=== PATIENT | female | born 1945 | race Caucasian/White ===

== ENCOUNTER → 2019-12-29 11:09 | Outpatient (BNVA) | payer MEDICARE, OTHER, SELFPAY | PROVIDERS: Family Provider Nurse Practitioner; PCP Nurse Practitioner; Visit Provider Nurse Practitioner | DX: L40.0 Psoriasis vulgaris (principal); I10 Essential (primary) hypertension; E55.9 Vitamin D deficiency, unspecified; E78.5 Hyperlipidemia, unspecified | CPT/HCPCS: 80053; 80061; 82306; 85025 ==

== ENCOUNTER → 2020-02-25 15:27 | Outpatient (BNVA) | payer MEDICARE, OTHER, SELFPAY | PROVIDERS: Family Provider Nurse Practitioner; PCP Nurse Practitioner; Visit Provider Dermatology | DX: R21 Rash and other nonspecific skin eruption (principal); L82.1 Other seborrheic keratosis; F17.210 Nicotine dependence, cigarettes, uncomplicated | CPT/HCPCS: 11104; 99203 ==

== ENCOUNTER → 2020-02-26 09:49 | Outpatient (BNVA) | payer MEDICARE, OTHER, SELFPAY | PROVIDERS: Family Provider Nurse Practitioner; PCP Nurse Practitioner; Visit Provider Dermatology | DX: L82.1 Other seborrheic keratosis (principal); R21 Rash and other nonspecific skin eruption | CPT/HCPCS: 88305 ==

== ENCOUNTER → 2020-03-09 10:50 | Outpatient (BNVA) | payer MEDICARE, OTHER, SELFPAY | PROVIDERS: Family Provider Nurse Practitioner; PCP Nurse Practitioner; Visit Provider Nurse Practitioner | DX: R19.7 Diarrhea, unspecified (principal) | CPT/HCPCS: 80053; 85025 ==

== ENCOUNTER → 2020-03-10 11:11 | Outpatient (BNVA) | payer MEDICARE, OTHER, SELFPAY | PROVIDERS: Family Provider Nurse Practitioner; PCP Nurse Practitioner; Visit Provider Nurse Practitioner | DX: R19.7 Diarrhea, unspecified (principal) | CPT/HCPCS: 81000; 87177; 87209; 87506 ==

== ENCOUNTER → 2020-03-14 10:01 | Outpatient (BNVA) | payer MEDICARE, OTHER, SELFPAY | PROVIDERS: Family Provider Nurse Practitioner; PCP Nurse Practitioner; Visit Provider Nurse Practitioner | DX: E87.1 Hypo-osmolality and hyponatremia (principal) | CPT/HCPCS: 80048 ==

== ENCOUNTER → 2020-03-24 15:08 | Outpatient (BNVA) | payer MEDICARE, OTHER, SELFPAY | PROVIDERS: Family Provider Nurse Practitioner; PCP Nurse Practitioner; Visit Provider Dermatology | DX: L43.2 Lichenoid drug reaction (principal); F17.210 Nicotine dependence, cigarettes, uncomplicated | CPT/HCPCS: 99213 ==

== ENCOUNTER → 2020-04-21 15:05 | Outpatient (BNVA) | payer MEDICARE, OTHER, SELFPAY | PROVIDERS: Family Provider Nurse Practitioner; PCP Nurse Practitioner; Visit Provider Dermatology | DX: L43.2 Lichenoid drug reaction (principal) | CPT/HCPCS: 99212; 99213 ==

== ENCOUNTER → 2020-06-02 10:45 | Outpatient (BNVA) | payer MEDICARE, OTHER, SELFPAY | PROVIDERS: Family Provider Nurse Practitioner; PCP Nurse Practitioner; Visit Provider Nurse Practitioner | DX: I10 Essential (primary) hypertension (principal); R63.4 Abnormal weight loss | CPT/HCPCS: 80053; 81003; 84443; 85025 ==

== ENCOUNTER 2020-06-10 07:45 | Outpatient (CLI) | payer MEDICARE, OTHER, SELFPAY ==
[2020-06-10] MEDS: iohexol 300 mg/mL 50 mL Btl PO (09:17)
[2020-06-10] MEDS: iohexol 300 mg/mL 100 mL Btl IV (09:23)
--- NOTE | 2020-06-10 09:30 | CT_ITS ---
WS: [id number] CT CHEST, ABDOMEN, AND PELVIS TECHNIQUE: Contrast-enhanced CT of the chest, abdomen, and pelvis with coronal and sagittal reformatt ed images. CLINICAL INFORMATION: weight loss abnormal r/o COMPARISON: CT abdomen [address] abdomen pelvis 2 ,014 DLP: 1079.[address] scans at [facility] use at least one of these dose optimization techniques: automat ed exposure control; mA and/or kV adjustment per patient size (includes targeted exams where dose is matched to clinical indication); or iterative reconstruction. CT CHEST: Mild chronic emphysematous changes. Fibrosis in the lung apices. Slightly spiculated small nodule in the right upper lobe laterally measuring 5 mm. Small subpleural nodule right middle lobe measuring 4 mm. Slight subsegmental atelectasis left lower lobe. Noncalcified nodule superior segment left lower lobe measuring 3.5 mm. Additional noncalcified nodule left upper lobe measuring 4 mm. Normal caliber thoracic aorta. Moderate aortic calcification. Proximal main pulmonary arteries are normal. No medias tinal or hilar lymphadenopathy. Thyroid gland is normal. No axillary lymphadenopathy. Normal visualiz ed thoracic spine. CT ABDOMEN AND PELVIS: Mild diffuse fatty infiltration of the liver. Normal gallbladder. Small splenule. Normal pancreas. Ad renal glands are normal. Normal renal parenchymal enhancement. No hydronephrosis. Tiny left renal cys t. Normal caliber abdominal aorta. Aortic calcification. No evidence of small or large bowel obstruction. No free fluid in the pelvis. Prior hysterectomy CT/CT chest abd pel w con* IMPRESSION: 1. Several noncalcified nodules described above the largest in the right upper lobe measuring 5 mm. Recommend 6 month follow-up. 2. 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 3. No adenopathy in the chest abdomen or pelvis. 4. No free fluid in the abdomen or pelvis. 5. No hydronephrosis in either kidney. Tiny left renal cysts. 6. Prior hysterectomy 7. Disc space narrowing worse L5-S1.
== END 2020-06-10 07:46 | disposition home or self-care (01) ==
PROVIDERS: PCP Nurse Practitioner; Visit Provider Nurse Practitioner
DX: R63.4 Abnormal weight loss (principal); R91.8 Other nonspecific abnormal finding of lung field; J84.10 Pulmonary fibrosis, unspecified; Z90.710 Acquired absence of both cervix and uterus
CPT/HCPCS: 71260; 74177

== ENCOUNTER → 2020-06-14 11:01 | Outpatient (BNVA) | payer MEDICARE, OTHER, SELFPAY | PROVIDERS: Family Provider Nurse Practitioner; PCP Nurse Practitioner; Visit Provider Nurse Practitioner | DX: R63.4 Abnormal weight loss (principal); R91.1 Solitary pulmonary nodule; I10 Essential (primary) hypertension; D64.9 Anemia, unspecified | CPT/HCPCS: 82607; 83550 ==

== ENCOUNTER → 2020-07-26 12:05 | Outpatient (BNVA) | payer MEDICARE, OTHER, SELFPAY | PROVIDERS: Family Provider Nurse Practitioner; PCP Nurse Practitioner; Visit Provider Nurse Practitioner | DX: J44.9 Chronic obstructive pulmonary disease, unspecified (principal); L43.2 Lichenoid drug reaction; E87.1 Hypo-osmolality and hyponatremia; I10 Essential (primary) hypertension | CPT/HCPCS: 80053; 85025 ==

== ENCOUNTER → 2020-08-24 10:07 | Outpatient (BNVA) | payer MEDICARE, OTHER, SELFPAY | PROVIDERS: Family Provider Nurse Practitioner; PCP Nurse Practitioner; Visit Provider Nurse Practitioner | DX: I50.9 Heart failure, unspecified (principal); J44.9 Chronic obstructive pulmonary disease, unspecified | CPT/HCPCS: 80053 ==

== ENCOUNTER 2020-12-27 09:59 | Outpatient (CLI) | payer MEDICARE, OTHER, SELFPAY ==
--- NOTE | 2020-12-27 10:30 | CT_ITS ---
WS: [id number] CT CHEST WITHOUT INTRAVENOUS CONTRAST HISTORY: lung nodule TECHNIQUE: Contiguous 5 mm axial imaging performed on the thorax. Coronal and sagittal reformats are submitted. All CT scans at [facility] use at least one of these dose optimization techniq ues: automated exposure control; mA and/or kV adjustment per patient size (includes targeted exams wh ere dose is matched to clinical indication); or iterative reconstruction. CONTRAST: None DLP: 346.35 mGy.cm COMPARISON: 06/10/2020 Lungs and central airway: Chronic emphysematous changes. Moderate biapical pleural thickening and fib rosis is stable. Slightly spiculated 5 mm nodule in the RIGHT upper lobe is unchanged. Subpleural nod ule in the RIGHT middle lobe is stable at 5 mm. Mild pleural thickening on the LEFT. No new or enlarg ing nodules. Pleura: Normal. No pleural effusion. Heart and pericardium: Normal size heart with no pericardial effusion. Mediastinum and polly: No mediastinum or hilar adenopathy. Vessels: Severe atherosclerosis aorta. Heavy calcification with no aneurysm. Pulmonary artery size is normal. Chest wall and lower neck: No soft tissue masses. Upper abdomen: Atherosclerosis continues into the suprarenal aorta. Unenhanced imaging of the distal organs is negative for any acute process. No adrenal mass. Osseous structures: Osteopenia with degenerative disc disease and osteophytic findings. CT/CT chest wo con [id number] IMPRESSION: 1. Chronic emphysematous changes and bilateral apical fibrosis. 2. RIGHT upper lobe and RIGHT middle lobe 5 mm pulmonary nodules are stable. N o new or increasing nodularity. Recommend [address] follow-up.
== END 2020-12-27 10:00 | disposition home or self-care (01) ==
PROVIDERS: PCP Nurse Practitioner; Visit Provider Nurse Practitioner
DX: R91.1 Solitary pulmonary nodule (principal)
CPT/HCPCS: 71250

== ENCOUNTER → 2021-02-06 10:11 | Outpatient (BNVA) | payer MEDICARE, OTHER, SELFPAY | PROVIDERS: PCP Nurse Practitioner; Visit Provider Nurse Practitioner | DX: I11.0 Hypertensive heart disease with heart failure (principal); E55.9 Vitamin D deficiency, unspecified; I50.9 Heart failure, unspecified | CPT/HCPCS: 80053; 80061; 81000; 82306; 82607; 84443; 85025 ==

== ENCOUNTER → 2021-08-22 11:20 | Outpatient (BNVA) | payer MEDICARE, OTHER, SELFPAY | PROVIDERS: PCP Nurse Practitioner; Visit Provider Nurse Practitioner | DX: E53.8 Deficiency of other specified B group vitamins (principal); I10 Essential (primary) hypertension; I50.9 Heart failure, unspecified; Z20.822 Contact with and (suspected) exposure to COVID-19; E55.9 Vitamin D deficiency, unspecified | CPT/HCPCS: 80053; 82306; 82607; 83880; 84443; 85025; 87635 ==

== ENCOUNTER → 2021-09-05 09:46 | Outpatient (BNVA) | payer MEDICARE, OTHER, SELFPAY | PROVIDERS: PCP Nurse Practitioner; Visit Provider Nurse Practitioner | DX: E87.1 Hypo-osmolality and hyponatremia (principal) | CPT/HCPCS: 80048 ==

== ENCOUNTER → 2022-02-05 11:45 | Outpatient (BNVA) | payer MEDICARE, OTHER, SELFPAY | PROVIDERS: PCP Nurse Practitioner; Visit Provider Nurse Practitioner | DX: I10 Essential (primary) hypertension (principal); I50.9 Heart failure, unspecified; F17.210 Nicotine dependence, cigarettes, uncomplicated; E55.9 Vitamin D deficiency, unspecified | CPT/HCPCS: 80053; 80061; 84443; 85025 ==

== ENCOUNTER → 2022-02-06 09:20 | Outpatient (BNVA) | payer MEDICARE, OTHER, SELFPAY | PROVIDERS: PCP Nurse Practitioner; Visit Provider Nurse Practitioner | DX: R19.5 Other fecal abnormalities (principal) | CPT/HCPCS: 83630; 87506 ==

== ENCOUNTER → 2022-10-15 09:43 | Outpatient (BNVA) | payer MEDICARE, OTHER, SELFPAY | PROVIDERS: PCP Nurse Practitioner; Visit Provider Nurse Practitioner | DX: I50.9 Heart failure, unspecified (principal); I10 Essential (primary) hypertension; L40.0 Psoriasis vulgaris | CPT/HCPCS: 80053; 80061; 85025 ==

== ENCOUNTER → 2023-05-23 15:22 | Outpatient (BNVA) | payer MEDICARE, OTHER, SELFPAY | PROVIDERS: PCP Nurse Practitioner; Visit Provider Nurse Practitioner | DX: J44.9 Chronic obstructive pulmonary disease, unspecified (principal); I10 Essential (primary) hypertension; L29.9 Pruritus, unspecified; E87.1 Hypo-osmolality and hyponatremia | CPT/HCPCS: 80053; 80061; 84443; 85025 ==

== ENCOUNTER → 2023-11-04 15:07 | Outpatient (BNVA) | payer MEDICARE, OTHER, SELFPAY | PROVIDERS: PCP Nurse Practitioner; Visit Provider Nurse Practitioner | DX: I10 Essential (primary) hypertension (principal); R91.1 Solitary pulmonary nodule; I50.9 Heart failure, unspecified; M50.30 Other cervical disc degeneration, unspecified cervical region; E78.5 Hyperlipidemia, unspecified; G47.00 Insomnia, unspecified; N39.0 Urinary tract infection, site not specified; Z79.899 Other long term (current) drug therapy | CPT/HCPCS: 80053; 80061; 81000; 84443; 85025; 87077; 87086; 87184 ==

== ENCOUNTER → 2023-11-18 12:13 | Outpatient (BNVA) | payer MEDICARE, OTHER, SELFPAY | PROVIDERS: PCP Nurse Practitioner; Visit Provider Nurse Practitioner | DX: E87.1 Hypo-osmolality and hyponatremia (principal); J44.9 Chronic obstructive pulmonary disease, unspecified; I10 Essential (primary) hypertension; M50.30 Other cervical disc degeneration, unspecified cervical region | CPT/HCPCS: 80053; 85025 ==

== ENCOUNTER → 2023-11-19 11:37 | Outpatient (BNVA) | payer MEDICARE, OTHER, SELFPAY | PROVIDERS: PCP Nurse Practitioner; Visit Provider Nurse Practitioner | DX: I10 Essential (primary) hypertension (principal) | CPT/HCPCS: 81000 ==

== ENCOUNTER → 2023-12-02 11:17 | Outpatient (BNVA) | payer MEDICARE, OTHER, SELFPAY | PROVIDERS: PCP Nurse Practitioner; Visit Provider Nurse Practitioner | DX: I10 Essential (primary) hypertension (principal) | CPT/HCPCS: 80048; 82607; 83550; 85025 ==

== ENCOUNTER → 2024-01-31 09:30 | Outpatient (BNVA) | payer MEDICARE, OTHER, SELFPAY | PROVIDERS: PCP Nurse Practitioner; Visit Provider Nurse Practitioner | DX: R19.7 Diarrhea, unspecified (principal) | CPT/HCPCS: 87045; 87427; 87449 ==

== ENCOUNTER → 2024-02-06 09:00 | Outpatient (BNVA) | payer MEDICARE, OTHER, SELFPAY | PROVIDERS: PCP Nurse Practitioner; Visit Provider Nurse Practitioner | DX: E53.8 Deficiency of other specified B group vitamins (principal); I10 Essential (primary) hypertension; E61.1 Iron deficiency | CPT/HCPCS: 80053; 83550; 85025 ==

== ENCOUNTER 2024-03-03 10:39 | Emergency (ER) | payer MEDICARE, OTHER, SELFPAY ==
[2024-03-03 10:41] VITALS: BP 138/63; PULSE 78; RESP 18; TEMP 36.8; O2SAT 98
--- NOTE | 2024-03-03 10:57 | XRR_ITS ---
PROCEDURE INFORMATION: Exam: XR Abdomen Exam date and time: 03/03/2024 11:25 AM Age: 78 years old Clinical indication: Constipation TECHNIQUE: Imaging protocol: Radiologic exam of the abdomen. Views: Frontal supine view of the abdomen. 1 View. COMPARISON: CT chest abdpel w/*[id number] 06/10/2020 9:15 AM FINDINGS: Gastrointestinal tract: No dilated loops of large or small bowel is appreciated. There is a moderate amount of stool within the colon and rectum. No pathologic calcifications are noted. Bones/joints: Unremarkable. XR/XR KUB [id number] IMPRESSION: 1. Fecal stasis.
--- NOTE | 2024-03-03 11:32 | ED_ITS ---
HPI - Abdominal Pain 2 General: Chief Complaint: Abdominal Pain Stated Complaint: constipation, abd pain Time Seen by Provider: 03/03/24 11:12 Source: patient Mode of arrival: ambulatory Limitations: no limitations History of Present Illness: 78-year-old female states that she has h ad constipation for the last week. States she is feeling pressure in her rectum is try to disimpact herself states she has not feels like she is not able to get a full bowel movement out. She denies any abdominal pain she had no vomiting no diarrhea she has tried laxatives at home with no success. Associated Symptoms: Reports constipation; Denies chills, diarrhea, fever(s), nausea and vomiting Review of Systems 2 Const: Denies: fever(s), chills, body aches or change in appetite ENMT: Denies: throat pain or dental pain Card: Denies: chest pain Resp: Denies: dyspnea GI: Reports: constipation; Denies: abdominal pain, nausea, vomiting or diarrhea Musc: Denies: neck pain or back pain Skin/Breast: Denies: rash Neuro: Denies: headache(s) PFSH ED 2 PFSH: Medical History Vitamin B12 deficiency COPD (chronic obstructive pulmonary disease) Cigarette smoker Lichenoid drug reaction Hyponatremia Dyslipidemia Psoriasis vulgaris DDD (degenerative disc disease), cervical Vitamin D deficiency HTN, goal below 140/80 Surgical History History of appendectomy History of hysterectomy with BSO Family History Other Heart disease Hypertension Denies family history of Bleeding disorder Cancer Social History Smoking and tobacco/nicotine status: current every day tobacco/nicotine user cigarettes Packs smoked per day: 0.5 Second hand smoke exposure: Yes Alcohol intake: current Alcohol intake frequency: few times a week Substance/Drug Use: unknown Adopted: No Caregiver/support person: No Lives independently: Yes Household members: spouse Housing: House Marital status: service: No Current occupational status: retired Do you think of yourself as: Straight/Heterosexual Current gender identity: Female Physical Exam 2 Const: COMMON NORMALS: no acute distress, patient oriented x3 and healthy appearing HENMT: COMMON NORMALS: normocephalic and atraumatic HEAD & SCALP: n ormocephalic and atraumatic Neck/C-Spine: COMMON NORMALS: full ROM and supple Chest: COMMONS NORMALS: normal inspection of the chest Resp: COMMON NORMALS: normal respiratory effort Cardio: COMMON NORMALS: regular rate, regular rhythm and No murmurs present (Cardio) RATE: regular rate RHYTHM: regular rhythm GI: COMMON NORMALS: Normal to inspection, nondistended, normoactive bowel sounds present, Soft to palpation, non-tender and no masses PALPATION: Yes Soft to palpation Extremity: COMMON NORMALS: normal to inspection and full ROM Neuro: COMMON NORMALS: patient oriented x3, moves all extremities and no focal motor deficits Psych: COMMON NORMALS: mental status grossly normal, Normal thought process present and cooperative THOUGHT PROCESS: Normal thought process present Skin: COMMON NORMALS: no rashes or lesions noted and no wounds GENERAL SKIN EXAM: no rashes or lesions noted Course 2 Vital Signs: Vital signs: Vital Signs Temperature 98.2 F 03/03/24 10:41 Pulse Rate 74 03/03/24 12:30 Respiratory Rate 15 03/03/24 12:30 Blood Pressure 140/68 03/03/24 12:30 Pulse Oximetry 98 03/03/24 12:30 Oxygen Delivery Me thod Room Air 03/03/24 12:30 MDM - Abdominal Pain Medical Decision Making Patient presents here with constipation she had a large bowel movement here and feels much improved she has no signs of obstruction she stable for discharge follow-up with PCP return if worsening Medical Records I reviewed the patient's medical records. Lab Data I reviewed the patient's lab results. 03/03/24 11:16 03/03/24 11:16 Labs/Radiology: Radiology Impressions KUB X-Ray 03/03/24 10:57 IMPRESSION: 1. Fecal stasis. Laboratory Results WBC 9.38 10^3/uL (3.29-11.43) 03/03/24 11:16 RBC 3.79 10^6/uL (3.85-5.65) L 03/03/24 11:16 Hgb 11.40 g/dL (11.27-16.99) 03/03/24 11:16 Hct 35.0 % (36-47) L 03/03/24 11:16 MCV 92.3 fl (85-98) 03/03/24 11:16 MCH 30.1 pg (27-33) 03/03/24 11:16 MCHC 32.6 g/dL (30-55) 03/03/24 11:16 RDW 13.2 % (12.1-15.1) 03/03/24 11:16 Plt Count 340 10^3/cmm (157-399) 03/03/24 11:16 MPV 8.8 fL (7.4-10.4) 03/03/24 11:16 Neut % (Auto) 79.2 % 03/03/24 11:16 Lymph % (Auto) 11.4 % 03/03/24 11:16 [place] % (Auto) 7.7 % 03/03/24 11:16 Eos % (Auto) 1.1 % 03/03/24 11:16 Baso % (Auto) 0.3 % 03/03/24 11:16 Neut # (Auto) 7.43 10^3/uL (1.8-7.7) 03/03/24 11:16 Lymph # (Auto) 1.1 10^3/uL (0.8-4.8) 03/03/24 11:16 [place] # (Auto) 0.7 10^3/uL (0.2-0.9) 03/03/24 11:16 Eos # (Auto) 0.1 10^3/uL (0.0-0.8) 03/03/24 11:16 Baso # (Auto) 0.0 10^3/uL (0.0-0.1) 03/03/24 11:16 Nucleated RBC % (auto) 0 % 03/03/24 11:16 Nucleated RBCs # 0.0 /100WBC 03/03/24 11:16 Sodium 130 mmol/L (136-145) L 03/03/24 11:16 Potassium 3.4 mmol/L (3.5-5.1) L 03/03/24 11:16 Chloride 93 mmol/L (98-107) L 03/03/24 11:16 Carbon Dioxide 27 mmol/L (22-29) 03/03/24 11:16 Anion Gap 13.4 (5-19) 03/03/24 11:16 BUN 14 mg/dL (8-23) 03/03/24 11:16 Creatinine 0.9 mg/dL (0.5-0.9) 03/03/24 11:16 GFR Calculation Not Reportable 03/03/24 11:16 Glucose 99 mg/dL (65-115) 03/03/24 11:16 Calculated Osmolality 271 mOsm/kg (285-295) L 03/03/24 11:16 Calcium 8.8 mg/dL (8.5-10.5) 03/03/24 11:16 Total Bilirubin 0.4 mg/dL (0.15-1.2) 03/03/24 11:16 AST 29 U/L (0-32) 03/03/24 11:16 ALT 19 U/L (0-33) 03/03/24 11:16 Alkaline Phosphatase 112 U/L (35-105) H 03/03/24 11:16 Total Protein 9.2 g/dL (6.6-8.7) H 03/03/24 11:16 Albumin 4.0 g/dL (3.5-5.2) 03/03/24 11:16 Globulin 5.2 g/dL (1.3-4.6) H 03/03/24 11:16 Lipase 39 U/L (13-60) 03/03/24 11:16 All radiology interpretation(s) finalized by discharge Discharge Plan Discharge Patient Disposition: Home Clinical Impression: Constipation Condition: Stable Prescriptions: No Action (DME) nebulizers Misc See Rx Instructions .ROUTE .MEDSUPPLY Qty: 1 0RF Rx Instructions: As directed aspirin [Adult Aspirin Regimen] 81 mg tablet,delayed release (DR/EC) 81 mg PO DAILY metoprolol succinate [Toprol XL] 25 mg tablet extended release 24 hr 25 mg PO DAILY Qty: 90 1RF Hold Instructions: Improved blood pressure...use if heart rate>120 sodium chloride 1,000 mg tablet,soluble 1,000 mg PO BID Qty: 180 1RF Hold Instructions: Improved lab ferrous sulfate [FeroSul] 325 mg (65 mg iron) tablet 325 mg PO DAILY amlodipine [Norvasc] 5 mg tablet 5 mg PO DAILY Qty: 90 1RF furosemide [Lasix] 20 mg tablet 20 mg PO DAILY PRN (Reason: edema) Qty: 90 1RF valsartan 160 mg tablet 160 mg PO DAILY Qty: 90 1RF famciclovir 500 mg tablet 500 mg PO BID Qty: 28 0RF lidocaine 4 % cream 1 applic topical TID PRN (Reason: pain) Qty: 28 0RF Rx Instructions: large area trunk triamcinolone acetonide 0.1 % ointment 1 applic topical DAILY PRN (Reason: itching) Qty: 453.6 0RF famotidine [Pepcid] 20 mg tablet 20 mg PO DAILY budesonide [Pulmicort] 0.5 mg/2 mL suspension for nebulization 0.5 mg inhalation BID Qty: 120 5RF albuterol sulfate 2.5 mg /3 mL (0.083 %) solution for nebulization 2.5 mg inhalation Q4H PRN (Reason: shortness of breath or wheezing) Qty: 180 2RF Rx Instructions: cough or wheeze ketoconazole 2 % shampoo 1 applic topical .two-three week Qty: 120 2RF Discharge Orders: Discharge ED (Routine); Ordered 03/03/24 Ordered By: Cezar Spangler Referrals: Uriel Ball, HEAD B[facility]ER-C [Primary Care Provider] - 4-7 days Discharge Diet: Advance as tolerated Discharge Activity: Resume usual activity Patient Instructions: Constipation (ED) Coding Level of Care Code ED [employer] for Lida Brar
[2024-03-03 11:38] LABS: Basophils % 0.3 %; Eosinophils # 0.1 10^3/uL (0.0-0.8); Eosinophils % 1.1 %; Lymphocytes # 1.1 10^3/uL (0.8-4.8); Lymphocytes % 11.4 %; Mean Corpuscular HGB Conc 32.6 g/dL (30-55); Mean Corpuscular Hemoglobin 30.1 pg (27-33); Mean Corpuscular Volume 92.3 fl (85-98); Mean Platelet Volume 8.8 fL (7.4-10.4); Monocytes # 0.7 10^3/uL (0.2-0.9); Monocytes % 7.7 %; Neutrophils # 7.43 10^3/uL (1.8-7.7); Neutrophils % 79.2 %; Nucleated Red Blood Cells % 0 %; Platelet Count 340 10^3/cmm (157-399); Red Blood Count 3.79 10^6/uL (3.85-5.65); Red Cell Distribution Width 13.2 % (12.1-15.1); White Blood Count 9.38 10^3/uL (3.29-11.43)
[2024-03-03 11:57] LABS: Alanine Aminotransferase 19 U/L (0-33); Alkaline Phosphatase 112 U/L (35-105); Anion Gap 13.4 (5-19); Aspartate Amino Transferase 29 U/L (0-32); Blood Urea Nitrogen 14 mg/dL (8-23); Calcium 8.8 mg/dL (8.5-10.5); Carbon Dioxide 27 mmol/L (22-29); Chloride 93 mmol/L (98-107); Creatinine Clr Calc Pharmacy 47.5983; Globulin 5.2 g/dL (1.3-4.6); Glucose 99 mg/dL (65-115); Lipase 39 U/L (13-60); Osmolality Calculated 271 mOsm/kg (285-295); Potassium 3.4 mmol/L (3.5-5.1); Sodium 130 mmol/L (136-145); Total Bilirubin 0.4 mg/dL (0.15-1.2); Total Protein 9.2 g/dL (6.6-8.7)
[2024-03-03] MEDS: lactulose oral liq 20 gm/30 mL UDC 30 GM PO (12:15)
[2024-03-03] MEDS: Fleet Enema 133 mL Enema PR (12:17)
[2024-03-03 12:30] VITALS: BP 140/68; PULSE 74; RESP 15; O2SAT 98
--- NOTE | 2024-03-03 12:51 | PC.NURSE ---
pt has had a large hard bm in room. pt currently in bathroom r/t pt stating she feels the urge to go more.
[2024-03-03 13:15] VITALS: BP 99/62; PULSE 91; RESP 16; O2SAT 91
== END 2024-03-03 13:17 | disposition home or self-care (01) ==
PROVIDERS: Physician Assistant; Emergency Provider Emergency Medicine; PCP Nurse Practitioner
DX: K59.00 Constipation, unspecified (principal); Z79.82 Long term (current) use of aspirin; J44.9 Chronic obstructive pulmonary disease, unspecified; E78.5 Hyperlipidemia, unspecified; I10 Essential (primary) hypertension; F17.210 Nicotine dependence, cigarettes, uncomplicated
CPT/HCPCS: 36415; 74018; 80053; 83690; 85025; 99284

== ENCOUNTER → 2024-04-09 09:54 | Outpatient (BNVA) | payer MEDICARE, OTHER, SELFPAY | PROVIDERS: PCP Nurse Practitioner; Visit Provider Nurse Practitioner | DX: I10 Essential (primary) hypertension (principal); E53.8 Deficiency of other specified B group vitamins; E61.1 Iron deficiency | CPT/HCPCS: 80053; 82607; 83540; 85025 ==

== ENCOUNTER → 2024-04-15 15:30 | Outpatient (BNVA) | payer MEDICARE, OTHER, SELFPAY | PROVIDERS: PCP Nurse Practitioner; Referring Provider Nurse Practitioner; Visit Provider Internal Medicine | DX: R07.9 Chest pain, unspecified (principal) | CPT/HCPCS: 93005; 99204 ==

== ENCOUNTER → 2024-06-03 14:41 | Outpatient (BNVA) | payer MEDICARE, OTHER, SELFPAY | PROVIDERS: PCP Nurse Practitioner; Visit Provider Nurse Practitioner | DX: I10 Essential (primary) hypertension (principal) | CPT/HCPCS: 80053; 81000; 85025 ==

== ENCOUNTER → 2024-11-18 08:47 | Outpatient (BNVA) | payer MEDICARE, OTHER, SELFPAY | PROVIDERS: PCP Nurse Practitioner; Visit Provider Nurse Practitioner | DX: E61.1 Iron deficiency (principal); E55.9 Vitamin D deficiency, unspecified; I10 Essential (primary) hypertension; E78.5 Hyperlipidemia, unspecified; E53.8 Deficiency of other specified B group vitamins | CPT/HCPCS: 80053; 80061; 82306; 82607; 83540; 85025 ==

== ENCOUNTER → 2024-11-23 15:58 | Outpatient (BNVA) | payer MEDICARE, OTHER, SELFPAY | PROVIDERS: PCP Nurse Practitioner; Visit Provider Nurse Practitioner | DX: I10 Essential (primary) hypertension (principal); N39.0 Urinary tract infection, site not specified | CPT/HCPCS: 81000; 87086 ==

== ENCOUNTER → 2025-03-09 11:38 | Outpatient (BNVA) | payer MEDICARE, OTHER, SELFPAY | PROVIDERS: PCP Nurse Practitioner; Visit Provider Nurse Practitioner | DX: I10 Essential (primary) hypertension (principal); E55.9 Vitamin D deficiency, unspecified | CPT/HCPCS: 80053; 82306; 84443 ==